=== PATIENT | female | born 1935 | race Caucasian/White ===

== ENCOUNTER → 2017-03-01 | Outpatient (REF) | payer MEDICARE, BC | LOC: M LAB REF 16:26 | PROVIDERS: ATTEND Ophthalmology | DX: H04.332 Acute lacrimal canaliculitis of left lacrimal passage (principal) ==

== ENCOUNTER → 2018-05-17 | Outpatient (REF) | payer MEDICARE, BC ==
[2018-05-17 17:13] LABS: FERRITIN 52 NG/ML (8-252); IRON (FE) 101 UG/DL (50-170); TOTAL IRON BINDING CAPACITY 348 UG/DL (250-450)
== END ==
LOC: M LAB REF 16:34
DX: K62.5 Hemorrhage of anus and rectum (principal)
CPT/HCPCS: 83550

== ENCOUNTER → 2019-01-01 | Outpatient (REF) | payer MEDICARE ==
[~2019-01-01] MED LIST: LISI10TA4 PO; NEUR100C PO; PREV1CAP PO; PROZ20CA11 PO; SIMV10TA2 PO; TOPA1TAB PO; [UNRECOGNIZED DRUG - OTHER] PO; [UNRECOGNIZED DRUG - OTHER] PO
[2019-01-04 00:06] LABS: ANTINUCLEAR ANTIBODIES DIRECT Negative (Negative); CYCLIC CITRULLINATED PEPTIDE 6 units (0-19)
== END ==
LOC: M LAB REF 16:41
PROVIDERS: ATTEND Internal Medicine
DX: M25.50 Pain in unspecified joint (principal)

== ENCOUNTER 2019-01-08 12:30 | Day surgery (SDC) | payer MEDICARE ==
[~2019-01-08] VITALS: Ht 160 cm; Wt 59.9 kg
[~2019-01-08 12:30] MED LIST changes: +NS 1,000 ML IV ONE
[2019-01-08] MEDS ORDERED: LIDOCAINE 2% INJ 100 MG/5 ML SDV (FOR ANES.) As Ordered ONE (14:19)
[2019-01-08] MEDS ORDERED: PROPOFOL 200 MG/20 ML VIAL As Ordered ONE (14:19)
--- NOTE | 2019-01-08 14:37 | ROOR ---
Patient Name: Larisa Olvera Procedure Date: 01/08/2019 2:19 PM Date of : 1935 Age: 83 Room: [facility] Gender: Female Note Status: Finalized Procedure: Upper GI endoscopy Indications: Heartburn, Chest pain (non cardiac) Providers: Lester PEGUERO MD Referring MD: Iram Brenner DO Requesting Provider: Medicines: Monitored Anesthesia Care Complications: No immediate complications. Procedure: Pre-Anesthesia Assessment: - The heart rate, respiratory rate, oxygen saturations, blood pressure, adequacy of pulmonary ventilation, and response to care were monitored throughout the procedure. The Endoscope was introduced through the mouth, and advanced to the second part of duodenum. The upper GI endoscopy was accomplished without difficulty. The patient tolerated the procedure well. Findings: The Z-line was regular and was found 28 cm from the incisors. The examined esophagus was normal. A large hiatal hernia was present. Diffuse moderate inflammation characterized by erythema and friability was found in the gastric antrum. Biopsies were taken with a cold forceps for histology. The examined duodenum was normal. Impression: - Normal esophagus. Z-line regular, 28 cm from the incisors. - Probable fairly large hiatal hernia (proximal half of stomach appears to be above diaphragm). - Moderate antral gastritis. Biopsied. - Normal examined duodenum. Recommendation: - Observe patient's clinical course. - Continue present medications. - Follow an antireflux regimen. Lester Peguero MD Lester PEGUERO MD 01/08/2019 2:37:47 PM Electronically signed by Lester PEGUERO MD Number of Addenda: 0 Note Initiated On: 01/08/2019 2:19 PM Estimated Blood Loss: Estimated blood loss: none.
[2019-01-08 15:05] VITALS: BP 142/62
== END 2019-01-08 15:12 | disposition home or self-care (01) ==
LOC: M OPP 12:30
PROVIDERS: ATTEND Internal Medicine Gastroenterology
DX: R12 Heartburn (principal); R07.89 Other chest pain; K44.9 Diaphragmatic hernia without obstruction or gangrene; K29.70 Gastritis, unspecified, without bleeding; K21.9 Gastro-esophageal reflux disease without esophagitis; R01.1 Cardiac murmur, unspecified; E78.5 Hyperlipidemia, unspecified; M19.90 Unspecified osteoarthritis, unspecified site; G43.909 Migraine, unspecified, not intractable, without status migrainosus; R32 Unspecified urinary incontinence; Z96.651 Presence of right artificial knee joint; Z96.652 Presence of left artificial knee joint; Z79.899 Other long term (current) drug therapy

== ENCOUNTER → 2021-04-03 | Outpatient (CLI) | payer MEDICARE ==
[~2021-04-03] MED LIST changes: +ISOVUE-370 76% 100ML VIAL ONE; +LISI10TA22 PO; -LISI10TA4 PO; -NS 1,000 ML IV ONE; -SIMV10TA2 PO; +SIMV10TA21 PO
--- NOTE | 2021-04-07 10:48 | REP ---
INDICATION: SOLITARY PULMONARY NODULE SEEN ON XRAY COMPARISON: There are no prior chest CTs for comparison. Lung base images obtained during abdominal and pelvic CT scanning of 05/22/2018 reviewed. Frontal view of the chest obtained 03/30/2021 from an outside institution was reviewed. TECHNIQUE: Standard helical technique after the intravenous administration of 100 cc Isovue 370. FINDINGS: The mediastinum and pulmonary pau are within normal limits. There is a large hiatal hernia. There are no pleural or pericardial effusions. There is no significant change in appearance of the imaged upper abdomen compared to the prior CT. Bone window technique throughout the examination shows spinal degenerative changes. Evaluation of the lung sutton shows no abnormal nodules, masses, or opacities. Minimal stable subsegmental atelectatic changes are seen in the right lower lobe. IMPRESSION: There is no evidence of acute disease. Findings as described above. <Electronically signed by Jamal Dudley > 04/07/21 1045
== END ==
LOC: M PLAIMG 08:59
PROVIDERS: ATTEND Physician Assistant
DX: R91.1 Solitary pulmonary nodule (principal)
CPT/HCPCS: 71260; Q9967

== ENCOUNTER 2023-02-02 10:25 | Emergency (ER) | payer MEDICARE ==
[~2023-02-02] VITALS: Ht 157.5 cm; Wt 50.9 kg
[~2023-02-02 10:25] MED LIST changes: -ISOVUE-370 76% 100ML VIAL ONE
[2023-02-02 10:26] VITALS: BP 145/66; TEMP 97.3; O2SAT 97
[2023-02-02] MEDS ORDERED: VESI10TA2 PO (12:49)
[2023-02-02] MEDS ORDERED: NYST1POW9 TOP (12:49)
[2023-02-02] MEDS ORDERED: TRAM50TA2 PO (12:49)
[2023-02-02] MEDS ORDERED: IMIP25TA3 PO (12:49)
[2023-02-02] MEDS ORDERED: TOPA100T12 PO (12:49)
[2023-02-02] MEDS ORDERED: ACET650T61 PO (12:49)
[2023-02-02] MEDS ORDERED: PRES1CHW PO (12:49)
[2023-02-02] MEDS ORDERED: TORS10TA3 (12:49)
[2023-02-02] MEDS ORDERED: OMEP40CA5 PO (12:49)
== END 2023-02-02 14:07 | disposition home or self-care (01) ==
LOC: M ED 10:25
DX: S70.02XA Contusion of left hip, initial encounter (principal); W19.XXXA Unspecified fall, initial encounter; Y92.009 Unspecified place in unspecified non-institutional (private) residence as the place of occurrence of the external cause; Y93.89 Activity, other specified; Y99.8 Other external cause status; I10 Essential (primary) hypertension; K21.9 Gastro-esophageal reflux disease without esophagitis; E78.5 Hyperlipidemia, unspecified; K59.00 Constipation, unspecified; Z79.899 Other long term (current) drug therapy